=== PATIENT | male | born 2000 | race Caucasian/White ===

== ENCOUNTER → 2020-04-25 11:26 | Outpatient (CLI) | payer OTHER, SELFPAY ==
--- NOTE | 2020-04-25 | DI.RAD.S_ITS ---
PROCEDURE: XR SHOULDER LT MIN 2V INDICATIONS: left shoulder pain TECHNIQUE: 3 views of the shoulder were acquired. COMPARISON: None. FINDINGS: Bones: No fractures or dislocations. No suspicious bony lesions. Visualized ribs appear intact. Soft tissues: No suspicious soft tissue calcifications. IMPRESSION: No trauma found. Source of new shoulder pain is not seen. Dictated by: Kenneth Martinez M.D. on 04/25/2020 at 13:11 Approved by: Kenneth Martinez M.D. on 04/25/2020 at 13:11
== END ==
DX: M25.512 Pain in left shoulder (principal)
CPT/HCPCS: 73030

== ENCOUNTER → 2020-07-16 08:22 | Outpatient (ROUT) | payer OTHER, SELFPAY ==
[2020-07-16 08:45] LABS: COVID19 -Nasal RAPID Negative (Negative)
== END ==
PROVIDERS: Visit Provider Family Medicine
DX: R11.0 Nausea (principal); R06.02 Shortness of breath
CPT/HCPCS: 87635